=== PATIENT | female | born 1940 | race Two or more races ===

== ENCOUNTER 2017-07-08 11:22 | Outpatient (CLI) | payer OTHER ==
[~2017-07-08 11:22] MED LIST: DIOVAN40 MG
== END 2017-07-08 11:31 | disposition home or self-care (01) ==
LOC: LAB 11:22
DX: N30.00 Acute cystitis without hematuria (principal)

== ENCOUNTER → 2017-07-18 13:15 | Outpatient (CLI) | payer OTHER | END | disposition home or self-care (01) | LOC: LAB 13:15 | DX: N30.00 Acute cystitis without hematuria (principal); R82.79 Other abnormal findings on microbiological examination of urine ==

== ENCOUNTER 2017-09-08 11:36 | Outpatient (CLI) | payer OTHER | END 2017-09-08 17:00 | disposition home or self-care (01) | LOC: MRI 11:36 | DX: M54.5 Low back pain (principal); I11.9 Hypertensive heart disease without heart failure | CPT/HCPCS: 72148 ==

== ENCOUNTER 2017-12-02 07:59 | Emergency (ER) | payer OTHER ==
[~2017-12-02] VITALS: Ht 160 cm; Wt 68.0 kg
[2017-12-02] MEDS ORDERED: ATIVAN0.5 MG (08:13)
[2017-12-02] MEDS ORDERED: DIOVAN40 MG (08:13)
== END 2017-12-02 12:40 | disposition home or self-care (01) ==
LOC: ER 07:59
DX: J45.901 Unspecified asthma with (acute) exacerbation (principal); B34.9 Viral infection, unspecified; J11.1 Influenza due to unidentified influenza virus with other respiratory manifestations

== ENCOUNTER 2018-03-04 09:18 | Outpatient (CLI) | payer OTHER ==
[~2018-03-04 09:18] MED LIST changes: +ATIVAN0.5 MG
== END 2018-03-04 09:24 | disposition home or self-care (01) ==
LOC: SONOGRAMA 09:18 → MAMO-SONO 10:15
DX: N39.0 Urinary tract infection, site not specified (principal); N20.0 Calculus of kidney; N39.46 Mixed incontinence

== ENCOUNTER 2018-05-26 10:19 | Outpatient (CLI) | payer OTHER | END 2018-05-26 10:21 | disposition home or self-care (01) | LOC: SONOGRAMA 10:19 | DX: R10.2 Pelvic and perineal pain (principal) ==

== ENCOUNTER → 2019-07-07 | Outpatient (CLI) | payer OTHER | END | disposition home or self-care (01) | LOC: MAMO-SONO 08:58 | DX: Z12.31 Encounter for screening mammogram for malignant neoplasm of breast (principal); Z87.898 Personal history of other specified conditions; Z12.39 Encounter for other screening for malignant neoplasm of breast ==

== ENCOUNTER 2021-06-26 13:01 | Outpatient (CLI) | payer OTHER | END 2021-06-26 13:19 | disposition home or self-care (01) | LOC: MRI 13:01 | PROVIDERS: ATTEND Anesthesiology | DX: M54.59 Other low back pain (principal) | CPT/HCPCS: 72148 ==